=== PATIENT | male | born 1960 | race Caucasian/White ===

== ENCOUNTER 2017-10-08 11:12 | Day surgery (SDC) | payer OTHER ==
[~2017-10-08] VITALS: Ht 182.9 cm; Wt 91.3 kg
[2017-10-08] VITALS (9 sets, daily range): BP systolic 133–142; BP diastolic 79–97; PULSE 53–89; RESP 18; TEMP 97.6–98.5; O2SAT 96–97
[~2017-10-08 11:12] MED LIST: CEPH500C3 PO; LISI2.5T3 PO; VICOTAB4 PO
[2017-10-08] MEDS ORDERED: IOHEXOL 350 MG/ML 50 ML BTL (for Cath Lab) OTHER ONE (11:13)
[2017-10-08] MEDS ORDERED: IOHEXOL 350 MG/ML 100 ML BTL (for Cath Lab) OTHER ONE (11:13)
[2017-10-08] MEDS ORDERED: NS 1000P @30 MLS/HR (KVO) IV SCH (12:00)
[2017-10-08] MEDS ORDERED: ISOS30TA3 PO (12:24)
[2017-10-08] MEDS ORDERED: LISI-515 PO (12:24)
[2017-10-08] MEDS ORDERED: METO1TAB42 PO (12:24)
[2017-10-08 12:34] LABS: EOSINOPHIL # 0.1 TH/MM3 (0-0.4); EOSINOPHIL % 1.5 % (0.0-4.0); HEMATOCRIT 45.3 % (39.0-51.0); HEMOGLOBIN 15.6 GM/DL (13.0-17.0); LYMPH % 41.7 % (9.0-44.0); LYMPHOCYTE # 1.8 TH/MM3 (1.0-4.8); MEAN CELL VOLUME 87.6 FL (80.0-100.0); MEAN CORPUSCULAR HEMOGLOBIN 30.2 PG (27.0-34.0); MEAN CORPUSCULAR HGB CONC 34.5 % (32.0-36.0); MEAN PLATELET VOLUME 8.4 FL (7.0-11.0); MONO % 9.7 % (0.0-8.0); MONOCYTE # 0.4 TH/MM3 (0-0.9); NEUT % 46.1 % (16.0-70.0); PLATELET COUNT 203 TH/MM3 (150-450); RED BLOOD COUNT 5.18 MIL/MM3 (4.50-5.90); WHITE BLOOD COUNT 4.3 TH/MM3 (4.0-11.0)
[2017-10-08 12:47] LABS: PROTHROMBIN TIME - PATIENT 10.5 SEC (9.8-11.6)
[2017-10-08 12:51] LABS: BICARBONATE 29.8 MEQ/L (21.0-32.0); CALCIUM 8.7 MG/DL (8.5-10.1); CREATININE 0.95 MG/DL (0.60-1.30)
[2017-10-08] MEDS ORDERED: MIDAZOLAM HCL 2 MG/2 ML VIAL ONE ×2 (13:29→13:58)
[2017-10-08] MEDS ORDERED: HEPARIN-NS/PF INJ 1,000 ML ONE (13:29)
[2017-10-08] MEDS ORDERED: HEPARIN SODIUM - IV 10,000 UNITS/10 ML VIAL ONE (14:11)
[2017-10-08] MEDS ORDERED: NITROGLYCERIN INJ 5 ML ONE (14:11)
[2017-10-08] MEDS ORDERED: TICAGRELOR 90 MG TAB PO ONE (14:38)
[2017-10-08] MEDS ORDERED: ASPIRIN 81 MG CHEW TAB ONE (14:40)
[2017-10-08] MEDS ORDERED: SODIUM CHLOR 0.9% 1000 ML INJ 1,000 ML IV SCH (15:16)
--- NOTE | 2017-10-08 16:03 | CATHPROC ---
AudioCatch HIS Report Study Information Study Number Admission Scheduled Start Study Start [id number] Oct 08 2017 11:12AM 10/08/2017 Oct 08 2017 1:23PM [facility] Service Cardiac Catheterization Admit Source Facility Department Other [facility] Physician and Clinical Staff Initial Hua Leonard Dairy Management Specialist Shanthi Edwards,RN Recorder Tomas Pena,RT(R) Scrub Lore Fraire,RT(R) Procedures Performed Procedure Location (Site) Vessel Name Angiogram LV LV Ventricle Coronary Angiograms LCA Left Coronary Coronary Angiograms RCA Right Coronary Drug Eluting Inflatio LAD Mid Left Coronary L Heart Cath PTCA LAD Mid Left Coronary Wire insertion Fem Art (right) Femoral Art Equipment Time Gaming Associate Description Size Mfg Part Number Used/Scraped TRANSDUCER, MAC [id number] 13:43 GO SHELL * Used W/STOCKCOCK *[id number] *[id number] [id number] *[id number] *[id number] *[id number] 14:38 DAIG/[employer] MEDICAL ANGIOSEAL, FR6 VIP FR 6 Used *[id number] 13:43 MEDLINE [employer] PACK, CCL CUSTOM * Used *[id number] 13:43 [employer] PACER PEN, SKIN DUAL W/ RULER * Used *[id number] 14:20 MEDTRONIC BALLOON, 2.0 X 15MM EUPHORA 15MM Used *[id number] 14:31 MEDTRONIC STENT, 2.75 34MM HAROON 2.75 34MM [id number] Used [id number] 14:20 [employer] MEDICAL 30 BUSHRA INDEFLATOR Used *[id number] 14:11 Home Team Therapy SHEATH, FR6.5 PRELUDE 11CM FR 6.5 038ACT Used *[id number] 13:43 Home Team Therapy WIRE, 3MMJ .035 180CM 180CM Used *[id number] PROBE COVER, STERILE [id number] 13:43 [facility] MEDICAL * Used ULTRASOUND W/ GEL *[id number] 13:43 NAMIC MANIFOLD, 4 PORT * Used *[id number] 13:43 NAMIC TUBING, HIGH PRESSURE 48" 48" Used *[id number] 13:43 [employer]COMED OMNIPAQUE, 350 MG, 150ML 150ML [id number] Used [id number] 13:43 [employer] BLANKET,WARM AIR CCL * Used *[id number] 13:43 TERUM[employer] MEDICAL SHEATH, FR5 TERUMO (10CM) FR 5 Used *[id number] WIRE, RUNTHROUGH NS FLOPPY [id number] 14:14 TERUMO MEDICAL 180CM Used .014 180CM *[id number] Equipment Model, Serial, Lot Number and Expiration Data Description Model Number Serial Number Lot Number Expiration Date BALLOON, 2.0 X 15MM EUPHORA [id number] 05-06-2019 STENT, 2.75 34MM HAROON [id number] 03-31-2019 History: Risk Factors Family History of Hypertension Dyslipidemia Previous OK Previous Heart Failure Premature CAD Yes No No Yes No Prior Valve Prior PCI Prior CABG Surgery No No No Cerebrovascular Peripheral Artery Chronic Lung On Dialysis Diabetes Disease Disease Disease No No No No No History: Stress Tests Stress or Imaging Studies Performed Yes Standard Exercise Stress Test No Stress Echo No Stress Test SPECT Stress Test SPECT Result Yes Negative Stress Test CMR No Cardiac CTA Coronary Calcium Score No No History: Other Current Smoker No Labs Hgb (g/dl) Hct (%) WBC (l/cumm) Platelets (thousands) 11.60-17.00 35.00-51.00 4.00-11.00 150.00-450.00 15.6 45.3 4.3 203 Glucose (mg/dl) BUN (mg/dl) Creatinine (mg/dl) BUN:Creatinine (1:x) 74.00-106.00 7.00-18.00 0.50-1.30 10.00-20.00 107 24 0.9 26.7 Na (meq/l) K (meq/l) 136.00-145.00 3.50-5.10 141 3.9 INR (PTT:PT) 0.90-1.10 1 CPK-MB (ng/ML) 0.50-3.60 Not Drawn Medication Medication Total Dose (Bolus/Oral) Medication Total Dosage/Unit 1% XYLOCAINE 20 mL ASPIRIN 81 mg BRILLINTA 180 mg FENTANYL 75 mcg HEPARIN 9500 units NTG (IC) 400 mcg VERSED 3 mg Medications (Bolus/Oral) Medication Time Given Dosage/Unit Administered By Reason VERSED 10/08/2017 1:58:32 PM 2 mg Adamy, Shanthi 2 mg VERSED given in lab by Shanthi Edwards RN in Left Antecubital via Peripheral IV. Ordered by Hua Correia. FENTANYL 10/08/2017 1:59:00 PM 50 mcg Jaci Edwardsnifer 50 mcg FENTANYL given in lab by Shanthi Edwards RN in Left Antecubital via Peripheral IV. Ordered by Hua Leal. 1% XYLOCAINE 10/08/2017 2:03:30 PM 20 mL Hua Leal 20 mL 1% XYLOCAINE given in lab by Hua Leal in Right Groin via Subcutaneous. Ordered by Hua Herman. VERSED 10/08/2017 2:03:53 PM 1 mg Adamy, Shanthi 1 mg VERSED given in lab by Shanthi Edwards RN via Peripheral IV. Ordered by Hua Leal. FENTANYL 10/08/2017 2:04:04 PM 25 mcg Shanthi Edwards 25 mcg FENTANYL given in lab by Shanthi Edwards RN via Peripheral IV. Ordered by Hua Leal. HEPARIN 10/08/2017 2:16:08 PM 7500 units Shanthi Edwards 7500 units HEPARIN given in lab by Shanthi Edwards RN in Left Antecubital via Peripheral IV. Ordered by Hua Leal. NTG (IC) 10/08/2017 2:27:01 PM 200 mcg Hua Leal 200 mcg NTG (IC) given in lab by Hua Leal via Intra-coronary. Ordered by Hua Leal. HEPARIN 10/08/2017 2:29:52 PM 2000 units Shanthi Edwards 2000 units HEPARIN given in lab by Shanthi Edwards RN via Peripheral IV. Ordered by Hua Leal. NTG (IC) 10/08/2017 2:34:48 PM 200 mcg Hua Leal 200 mcg NTG (IC) given in lab by Hua Leal via Intra-coronary. Ordered by Hua Leal. BRILLINTA 10/08/2017 2:43:38 PM 180 mg Shanthi Edwards 180 mg BRILLINTA given in lab by Shanthi Edwards, ROSAMARIA in Per mouth via Oral. Ordered by Maryjo Leal ASPIRIN 10/08/2017 2:47:00 PM 81 mg Shanthi Edwards 81 mg ASPIRIN given in lab by Shanthi Edwards, RN via Subcutaneous. Ordered by Hua Leal. Medication (Drip) Medication Time Given Dosage/Unit Concentration/Unit Diluent (ml) Solution IV Solutions 10/08/2017 1:31:35 PM 0 mL (IV) 500 NaCl .9 Patient arrived on IV Solutions given by Hua Leal in Left Antecubital via Peripheral IV. Pump/ Drip Flow = 20 ml/hr using NaCl .9. Ordered by Hua Leal. Initial Case Assessment Cardiovascular HR Rhythm NIBP Chest Pain 74 sr 141/81 0 Edema Present Skin color Skin None Normal Warm Dry Circulatory - Right Pulses Dorsalis Pedis Femoral 3 3 Scale (0,1,2,3,4,d) Circulatory - Left Pulses Dorsalis Pedis Femoral 3 3 Scale (0,1,2,3,4,d) Neurological State Oriented to time-place- Alert Moves all extremities person Respiration - General Respiration Rate SpO2 (%) O2 (lpm) (B/min) 18 96 0 Chronological Log Time Study Chronological Log 13:23:16 Patient arrived via Bed. 13:23:18 Patient Name, D.O.B, / Armband Verified By R.N. 13:23:20 Consent signed by the physician and the patient and verified by the [facility] staff. 13:23:21 Pre-op and post- op instructions given; patient acknowledges understanding of instruction s. Vitals capture started with the following parameters, Patient=Adult, Interval=5 min, Initial Wricqheb=562 mmHg, 13:28:02 Deflation Rate=5 mmHg, Cuff placed on Right Arm 13:29:08 Reference ECG taken 13:29:13 Presedation assessment performed by [facility] RN. 13:29:15 Patient has been NPO for More than 6Hrs. 13:29:17 HR=70 bpm, BKSF=939/81 mmhg, SpO2=98.0 %, Resp=16 B/min, Corey=2 Skin Breakdown-none present per patient 13:29:17 13:30:10 A # 20 IV was noted in the Antecubital (left). Grade = 0 Patient arrived on IV Solutions given by Hua Leal in Left Antecubital via Peripheral I V. Pump/Drip Flow = 20 13:31:35 ml/hr using NaCl .9. Ordered by Hua Leal. 13:31:55 History and physical on the chart or being dictated. Assessment: Initial Case, HR=74 BPM, Rhythm=sr, HVXO=896/81 mmhg, Chest Pain=0, Edema=None, Col or=Normal, Skin = Warm, Dry Right Pulses: Amandeep Ped=3, Femoral=3 13:31:57 Left Pulses: Amandeep Ped=3, Femoral=3 Neurological: State=Alert, Ox3, QUINTEROS Respiration: Resp=18 B/min, SpO2=96 %, O2=0 lpm 13:32:24 Bilateral groins prepped with 2% chlorhexidine, and draped after a 3 minute waiting time. 13:33:43 HR=76 bpm, WSUX=447/81 mmhg, SpO2=97.0 %, Resp=12 B/min, Corey=2 13:37:40 Pressure channel 1 zeroed. 13:38:44 HR=71 bpm, GALK=268/75 mmhg, SpO2=96.0 %, Resp=13 B/min, Corey=2 13:43:43 HR=66 bpm, XZFD=977/66 mmhg, SpO2=97.0 %, Resp=10 B/min, Corey=2 13:43:58 MD paged 13:48:42 HR=65 bpm, YHCC=984/80 mmhg, SpO2=98.0 %, Resp=8 B/min, Corey=2 13:53:43 HR=74 bpm, MVDC=264/78 mmhg, SpO2=99.0 %, Resp=10 B/min, Corey=2 13:58:32 2 mg VERSED given in lab by Shanthi Edwards, RN in Left Antecubital via Peripheral IV. Orde red by Hua Leal. 13:58:44 HR=72 bpm, UYEH=950/82 mmhg, SpO2=98.0 %, Resp=12 B/min, Corey=2 50 mcg FENTANYL given in lab by Shanthi Edwards, RN in Left Antecubital via Peripheral IV. Orde red by Mel, 13:59:00 Hua. Time Out. Correct patient, correct procedure, correct physician, power injector loaded with con trast with surgical team 14:01:56 present. Time Out Concurred by MD and individual staff in procedure. Loaded by Jaci Edwards rn , verified by Lore Fraire. 14:03:09 Presedation re-assessment performed by [facility] RN. 14:03:11 Case Start 14:03:14 Verbal Stimulation=2 Physical Stimulation=2 Airway=2 Respiration=2 TOTAL=8. (0=absent, 1=li mited, 2=present) 14:03:30 20 mL 1% XYLOCAINE given in lab by Hua Leal in Right Groin via Subcutaneous. Ordered by Hua Leal. 14:03:45 HR=71 bpm, XEWG=874/69 mmhg, SpO2=98.0 %, Resp=13 B/min, Corey=2 14:03:53 1 mg VERSED given in lab by Shanthi Edwards, ROSAMARIA via Peripheral IV. Ordered by Matthew Leal ar. 14:04:04 25 mcg FENTANYL given in lab by Shanthi Edwards RN via Peripheral IV. Ordered by Hua Leal. 14:04:34 Access site was Right Femoral Artery. 14:04:42 A SHEATH, FR5 TERUMO (10CM) FR 5 was advanced into the Fem Art (right) using the Percutaneo us technique. A PIGTAIL ANG. INFINITI CATHETER FR 5 was advanced over a wire. OMNIPAQUE, 350 MG, 150ML 150ML was used 14:05:09 for injections. Recorded Pressure: LV, HR=72, Condition=Condition 1 14:06:46 (Left Ventricle) LV 107/5/8 14:07:23 The LV was injected at 10 cc/sec for a total of 30. OMNIPAQUE, 350 MG, 150ML 150ML used. Recorded Pressure: LV, Ao, HR=73, Condition=Condition 1 14:08:27 (Left Ventricle) LV 97/2/6, (Aorta) Ao 105/66/83 14:08:40 Catheter was removed 14:08:44 HR=70 bpm, VAEH=112/58 mmhg, SpO2=98.0 %, Resp=10 B/min, Corey=2 A JL 4.0 INFINITI CATHETER FR 5 was advanced over a wire. OMNIPAQUE, 350 MG, 150ML 150ML was us ed for 14:09:48 injections. 14:09:56 The LCA was injected and visualized at various angles. OMNIPAQUE, 350 MG, 150ML 150ML used . Recorded Pressure: Ao, HR=70, Condition=Condition 1 14:10:55 (Aorta) Ao 104/70/85 14:11:48 Catheter was removed A AR MOD INFINITI CATHETER FR 5 was advanced over a wire. OMNIPAQUE, 350 MG, 150ML 150ML was us ed for 14:11:50 injections. 14:12:59 The RCA was injected and visualized at various angles. OMNIPAQUE, 350 MG, 150ML 150ML used . 14:13:45 HR=68 bpm, VFQG=315/52 mmhg, SpO2=98.0 %, Resp=19 B/min, Corey=2 14:15:39 Catheter was removed A SHEATH, FR6.5 PRELUDE 11CM FR 6.5 was exchanged in the Fem Art (right). This was necessary in order to 14:15:55 accomodate a larger catheter. 7500 units HEPARIN given in lab by Shanthi Edwards RN in Left Antecubital via Peripheral IV. O rdered by Mel, 14:16:08 Hua. A XBLAD 4.0 GUIDE CATHETER FR 6 was advanced over a wire. OMNIPAQUE, 350 MG, 150ML 150ML was us ed for 14:16:32 injections. 14:18:33 A WIRE, RUNTHROUGH NS FLOPPY .014 180CM 180CM was inserted via Fem Art (right). 14:18:42 HR=76 bpm, QGVS=154/60 mmhg, SpO2=98.0 %, Resp=12 B/min, Corey=2 14:19:09 Interventional wire has crossed the lesion A BALLOON, 2.0 X 15MM EUPHORA 15MM was inserted over WIRE, RUNTHROUGH NS FLOPPY .014 180CM 180C M via 14:20:10 the LAD Mid. A BALLOON, 2.0 X 15MM EUPHORA 15MM over a WIRE, RUNTHROUGH NS FLOPPY .014 180CM 180CM in the LA D Mid 14:20:22 was inflated using a 30 BUSHRA INDEFLATOR at 16 bushra for 25 sec. 14:21:56 Activated Clotting Time Drawn A BALLOON, 2.0 X 15MM EUPHORA 15MM over a WIRE, RUNTHROUGH NS FLOPPY .014 180CM 180CM in the LA D Mid 14:22:18 was inflated using a 30 BUSHRA INDEFLATOR at 16 bushra for 15 sec. A BALLOON, 2.0 X 15MM EUPHORA 15MM over a WIRE, RUNTHROUGH NS FLOPPY .014 180CM 180CM in the LA D Mid 14:22:42 was inflated using a 30 BUSHRA INDEFLATOR at 16 bushra for 10 sec. 14:23:41 HR=75 bpm, ZRMW=367/65 mmhg, SpO2=97.0 %, Resp=14 B/min, Corey=2 A BALLOON, 2.0 X 15MM EUPHORA 15MM over a WIRE, RUNTHROUGH NS FLOPPY .014 180CM 180CM in the LA D Mid 14:23:51 was inflated using a 30 BUSHRA INDEFLATOR at 16 bushra for 10 sec. A BALLOON, 2.0 X 15MM EUPHORA 15MM over a WIRE, RUNTHROUGH NS FLOPPY .014 180CM 180CM in the LA D Mid 14:24:05 was inflated using a 30 BUSHRA INDEFLATOR at 16 bushra for 8 sec. 14:26:34 ACT (Normal Range 90-180) = 256 14:27:01 200 mcg NTG (IC) given in lab by Hua Leal via Intra-coronary. Ordered by Kobe Leal. 14:28:46 HR=79 bpm, LOOV=296/65 mmhg, SpO2=96.0 %, Resp=10 B/min, Corey=2 14:29:10 Balloon Removed. 14:29:52 2000 units HEPARIN given in lab by Shanthi Edwards, ROSAMARIA via Peripheral IV. Ordered by Hua Herman. A STENT, 2.75 34MM HAROON 2.75 34MM was advanced through a XBLAD 4.0 GUIDE CATHETER FR 6 over a W JOSE CARLOS, 14:30:14 RUNTHROUGH NS FLOPPY .014 180CM 180CM. A STENT, 2.75 34MM HAROON 2.75 34MM was deployed using a 30 BUSHRA INDEFLATOR at 12 atmospheres for 50 seconds 14:31:01 in the LAD Mid. 14:32:57 Delivery device removed 14:33:43 HR=79 bpm, OYVC=247/67 mmhg, SpO2=98.0 %, Resp=14 B/min, Corey=2 14:34:48 200 mcg NTG (IC) given in lab by Hua Leal via Intra-coronary. Ordered by Kobe Leal. 14:36:46 Wire removed 14:37:01 Catheter was removed 14:37:27 An injection in the Fem Art (right) was made through the SHEATH, FR6.5 PRELUDE 11CM FR 6.5. 14:37:41 ANGIOSEAL, FR6 VIP FR 6 placement in the Fem Art (right) 14:38:44 HR=77 bpm, CDZT=718/79 mmhg, SpO2=97.0 %, Resp=13 B/min, Corey=2 14:39:20 Case End 14:39:23 Sterile dressing applied to site 14:39:25 No case complications noted. 14:39:27 Cine recording checked. 14:39:29 Bedside Report will be given. 14:39:31 Implantable Device card placed in patient's chart. 14:39:33 Contrast Scanned 14:40:36 A Left Heart Cath was performed. 14:43:38 180 mg BRILLINTA given in lab by Shanthi Edwards, RN in Per mouth via Oral. Ordered by Hua Correia. 14:43:50 HR=72 bpm, CCPF=860/73 mmhg, SpO2=97.0 %, Resp=10 B/min, Corey=2 14:47:00 81 mg ASPIRIN given in lab by Shanthi Edwards, RN via Subcutaneous. Ordered by Kobe Leal. 14:47:37 Vitals capture stopped. 14:49:38 Patient moved to the [facility] Vitals capture started with the following parameters, Patient=Adult, Interval=5 min, Initial P dhivfwb=195 mmHg, 15:12:44 Deflation Rate=5 mmHg, Cuff placed on Right Arm 15:13:50 HR=64 bpm, JBNS=359/102 mmhg, SpO2=98 %, Resp=16 B/min 15:14:01 Vitals capture stopped. End Study - Contrast Media Used In Study Contrast Total Opened (mL) Total Used (mL) Total Wasted (mL) Omnipaque 250 250 0 End Study - Maximum Contrast Load Max Contrast Load (mL) 542.7 End Study - Radiation Exposure Fluoro Time (minutes) 5.4 End Study - Patient Disposition Complications Transferred To Interventional Outcome No Telemetry Bed successful
[2017-10-08] MEDS ORDERED: ATORVASTATIN 80 MG TAB PO SCH (21:00)
[2017-10-09] VITALS (15 sets, daily range): BP systolic 112–143; BP diastolic 68–91; PULSE 53–86; RESP 16–18; TEMP 98.5; O2SAT 96–97
[2017-10-09] MEDS ORDERED: TICAGRELOR 90 MG TAB PO SCH (05:00)
[2017-10-09 06:25] LABS: AUTOMATED NEUTROPHIL # 4.5 TH/MM3 (1.8-7.7); BASOPHIL # 0.1 TH/MM3 (0-0.2); BASOPHIL % 0.8 % (0.0-2.0); EOSINOPHIL # 0.1 TH/MM3 (0-0.4); EOSINOPHIL % 1.6 % (0.0-4.0); HEMATOCRIT 44.4 % (39.0-51.0); LYMPH % 20.1 % (9.0-44.0); LYMPHOCYTE # 1.3 TH/MM3 (1.0-4.8); MEAN CELL VOLUME 89.3 FL (80.0-100.0); MEAN CORPUSCULAR HEMOGLOBIN 30.1 PG (27.0-34.0); MEAN CORPUSCULAR HGB CONC 33.7 % (32.0-36.0); MEAN PLATELET VOLUME 8.5 FL (7.0-11.0); MONO % 9.8 % (0.0-8.0); MONOCYTE # 0.7 TH/MM3 (0-0.9); NEUT % 67.7 % (16.0-70.0); PLATELET COUNT 193 TH/MM3 (150-450); RED BLOOD COUNT 4.97 MIL/MM3 (4.50-5.90); RED CELL DISTRIBUTION WIDTH 14.1 % (11.6-17.2); WHITE BLOOD COUNT 6.7 TH/MM3 (4.0-11.0)
[2017-10-09 06:51] LABS: BICARBONATE 27.7 MEQ/L (21.0-32.0); CALCIUM 9.1 MG/DL (8.5-10.1); CREATININE 0.94 MG/DL (0.60-1.30)
[2017-10-09 06:54] LABS: CHOLESTEROL/ HDL RATIO 4.33 RATIO; HDL CHOLESTEROL 41.8 MG/DL (40.0-60.0)
[2017-10-09] MEDS ORDERED: ASPIRIN 81 MG CHEW TAB PO SCH (09:00)
--- NOTE | 2017-10-09 13:34 | EKG ---
Date Performed: 10/09/2017 Time Performed: 05:57:28 PTAGE: 57 years EKG: Sinus bradycardia Left axis deviation Left bundle branch block Since the prior tracing, the re has been no significant change Abnormal ECG PREVIOUS TRACING : 10/08/2017 13.05 DOCTOR: Ryne Jiménez Interpretating Date/Time 10/09/2017 13:32:49
--- NOTE | 2017-10-09 13:57 | EKG ---
Date Performed: 10/08/2017 Time Performed: 13:05:36 PTAGE: 57 years EKG: Sinus rhythm Left bundle branch block Abnormal ECG NO PREVIOUS TRACING DOCTOR: Ryne Jiménez Interpretating Date/Time 10/09/2017 13:55:16
--- NOTE | 2017-10-09 15:23 | PD.CARD.PN ---
Subjective Subjective Remarks No CP or SOB, feels fine Objective Medications Current Medications Medications (Trade) Dose Ordered Sig/Camila Route Start Time Stop Time Status Last Admin (Aspirin Chew) 81 mg DAILY PO 10/09/17 09:00 10/09/17 08:58 (Brilinta) 90 mg BID PO 10/09/17 05:00 10/09/17 05:53 (Lipitor) 80 mg HS PO 10/08/17 21:00 10/08/17 22:04 Vital Signs / I&O Vital Signs Date Time Temp Pulse Resp B/P (MAP) Pulse Ox O2 Delivery O2 Flow Rate FiO2 10/09/17 13:00 70 10/09/17 12:00 64 10/09/17 11:00 64 10/09/17 10:00 86 10/09/17 09:00 68 10/09/17 08:00 98.5 66 18 119/81 (94) 97 10/09/17 08:00 53 10/09/17 06:00 60 10/09/17 05:45 57 18 112/68 (83) 96 10/09/17 05:00 56 10/09/17 04:00 56 10/09/17 03:00 54 10/09/17 02:00 54 10/09/17 01:00 64 10/09/17 00:00 62 10/09/17 00:00 69 16 129/75 (93) 96 10/08/17 23:00 53 10/08/17 22:00 60 10/08/17 21:00 53 10/08/17 20:10 97.6 89 18 142/97 (112) 97 10/08/17 20:00 64 10/08/17 18:00 64 10/08/17 17:00 64 10/08/17 16:00 98.5 71 18 133/79 (97) 96 I/O 10/08/17 10/08/17 10/08/17 10/09/17 10/09/17 10/09/17 07:00 15:00 23:00 07:00 15:00 23:00 Intake Total 240 ml 240 ml Output Total 500 ml Balance 240 ml -260 ml Intake Oral 240 ml 240 ml Output Urine Total 500 ml # Voids 2 Physical Exam GENERAL: In NAD SKIN: Warm and dry. HEAD: Normocephalic. EYES: No scleral icterus. No injection or drainage. NECK: Supple, trachea midline. No JVD or lymphadenopathy. CARDIOVASCULAR: Regular rate and rhythm without murmurs, gallops, or rubs. RESPIRATORY: Breath sounds equal bilaterally. No accessory muscle use. GASTROINTESTINAL: Abdomen soft, non-tender, nondistended. MUSCULOSKELETAL: No cyanosis, or edema. Groin stable Laboratory Laboratory Tests Test 10/09/17 05:40 White Blood Count 6.7 TH/MM3 Red Blood Count 4.97 MIL/MM3 Hemoglobin 15.0 GM/DL Hematocrit 44.4 % Mean Corpuscular Volume 89.3 FL Mean Corpuscular Hemoglobin 30.1 PG Mean Corpuscular Hemoglobin Concent 33.7 % Red Cell Distribution Width 14.1 % Platelet Count 193 TH/MM3 Mean Platelet Volume 8.5 FL Neutrophils (%) (Auto) 67.7 % Lymphocytes (%) (Auto) 20.1 % Monocytes (%) (Auto) 9.8 % Eosinophils (%) (Auto) 1.6 % Basophils (%) (Auto) 0.8 % Neutrophils # (Auto) 4.5 TH/MM3 Lymphocytes # (Auto) 1.3 TH/MM3 Monocytes # (Auto) 0.7 TH/MM3 Eosinophils # (Auto) 0.1 TH/MM3 Basophils # (Auto) 0.1 TH/MM3 CBC Comment DIFF FINAL Differential Comment Blood Urea Nitrogen 20 MG/DL Creatinine 0.94 MG/DL Random Glucose 93 MG/DL Calcium Level 9.1 MG/DL Sodium Level 139 MEQ/L Potassium Level 3.8 MEQ/L Chloride Level 105 MEQ/L Carbon Dioxide Level 27.7 MEQ/L Anion Gap 6 MEQ/L Estimat Glomerular Filtration Rate 83 ML/MIN Total Creatine Kinase 95 U/L Triglycerides Level 138 MG/DL Cholesterol Level 181 MG/DL LDL Cholesterol 112 MG/DL HDL Cholesterol 41.8 MG/DL Cholesterol/HDL Ratio 4.33 RATIO Assessment and Plan Problem List: (1) Angina pectoris ICD Codes: I20.9 - Angina pectoris, unspecified (2) CAD (coronary artery disease) ICD Codes: I25.10 - Atherosclerotic heart disease of [place] coronary artery without angina pectoris (3) Stented coronary artery ICD Codes: Z95.5 - Presence of coronary angioplasty implant and graft Assessment and Plan No angina or CHF. Groin stable. DC home. Continue Brilinta, baby ASA, beta pineda, statin. Will schedule outpatient f/u. Hua Leal MD Oct 09, 2017 15:23
[2017-10-09] MEDS ORDERED: ATOR80TA45 PO (15:30)
--- NOTE | 2017-10-11 11:20 | MA ---
cc: [facility] [place] DATE 10/08/2017 INDICATION FOR PROCEDURE Unstable angina, class III angina, intermediate probability nuclear myocardial perfusion study. PROCEDURE PERFORMED 1. Retrograde left heart catheterization with left ventriculography and selective coronary angiography. 2. Angioplasty and stenting of the mid left descending coronary artery. 3. Moderate sedation. ACCESS SITE Right femoral artery. EQUIPMENT USED 5 [place]une[place] pigtail, JR4, JL4 and AR modified coronary catheters. XB 4.0 guide, Runthrough wire, 2.0 balloon for pre-dilatation, 2.75 x 34 mm Ch[place] stent at 12 atmospheres. MEDICATION Versed IV, fentanyl IV, heparin IV, nitroglycerin IC, Brilinta 180 mg p.o., aspirin 81 mg p.o. CONTRAST Omnipaque 250 cc. COMPLICATIONS None. ESTIMATED BLOOD LOSS Less than 10 cc. METHOD OF HEMOSTASIS Angio-Seal closure. RESULTS HEMODYNAMICS Heart rate 60 beats per minute. LV end-diastolic pressure 5 mmHg. Left ventricle 100/5, aorta 100/70/85. LEFT VENTRICULOGRAPHY Ejection fraction 55%. Wall motion normal. No mitral regurgitation. CORONARY ANGIOGRAPHY The left main coronary is patent. The left anterior descending artery is totally occluded in the mid portion distally to the ostium of the first diagonal branch. The first diagonal branch has 50% ostial stenosis. The second diagonal branch is small and patent. The distal LAD was faintly supplied by [id number] collaterals. The left circumflex artery is patent. OM1 is a large vessel with 20% proximal stenosis. The right coronary artery is a dominant vessel which is patent. PDA is patent. PLV is patent. INTERVENTION LAD stenosis 100%. Lesion length 28 mm. Pre-MONSERRAT flow 0, post-MONSERRAT flow III, post-stenosis 0. Post-intervention angiography with excellent patency of the stented segment and no evidence of dissection, thrombosis or distal embolization. DIAGNOSIS 1. Coronary artery disease with total occlusion of the mid left anterior descending coronary artery. 2. Overall preserved left ventricular systolic function. 3. Successful angioplasty and stenting of the mid left anterior descending artery DISPOSITION Mr. Mcmansu will be monitored on telemetry after his procedure. We will continue therapy with Brilinta and baby aspirin for at least one year. We will also continue aggressive modification of his cardiac risk factors. I will see him back for follow-up in our office after discharge. MD LEONILA Meza /3:11 PM /11:02 AM ARUN
== END 2017-10-09 15:33 | disposition home or self-care (01) ==
LOC: HDIC 11:12 → HDOC 11:12 → HCIS 16:06 → HDOC 10-09 15:33
PROVIDERS: ATTEND Internal Medicine Interventional Cardiology
DX: I20.0 Unstable angina (principal); I25.10 Atherosclerotic heart disease of native coronary artery without angina pectoris
CPT/HCPCS: 80048; 80061; 82550; 85002; 85025; 85610; 85730; 92928; 93005; 93458; 99152; 99153; C1725; C1760; C1769; C1874; C1887; C1893; G0269; J1644; J2250; J3010; Q9967